=== PATIENT | male | born 1945 | race Asian ===

== ENCOUNTER 2024-01-12 07:05 | Day surgery (SDC) | payer OTHER, SELFPAY ==
[2024-01-12] VITALS (16 sets, daily range): BP systolic 148–173; BP diastolic 80–103; BMI 28.3
[2024-01-12] MEDS: LOW STRENGTH ASPIRIN 324 MG PO (08:10)
[2024-01-12] MEDS: NSS 210 ML IV (08:12)
[2024-01-12 08:15] LABS: Glucose - Point of Care 115 mg/dl (70-99)
--- NOTE | 2024-01-12 10:27 | ITS.CL.CATH ---
[employer]ist - Catheterization
Cardiac Catheterization
Procedure Report:
CARDIAC CATHETERIZATION REPORT
Date of Procedure: 01/12/2024
Referring: Sigifredo Ivey MD
Indication: Exertional angina of recent onset
�
HEMODYNAMIC DATA
AO: 175/89
LV: 175/20
�
LEFT VENTRICULOGRAPHY: Normal left ventricular wall motion with EF 64%
�
CORONARY ANGIOGRAPHY
Dominance: Right
Left Main: Normal
LAD: 50% mid LAD stenosis with otherwise mild luminal irregularities in the LAD proper. The small caliber medium distribution D1 has 30% proximal stenosis.
Circumflex: The circumflex gives rise to a tiny OM1, a large OM 2 and terminates with a tiny OM 3. There is 60% circumflex stenosis at the takeoff of OM 2
RCA: Large dominant vessel with mild luminal irregularities in the RCA proper. The acute marginal supplies the distal RPDA territory and is free of disease. There is a 40% right AV groove lesion distal to the takeoff of the acute marginal branch.
The relatively small PDA supplies the proximal PDA territory. There are four medium sized right posterolateral branches with mild luminal disease.
FloWire assessment: At the conclusion the diagnostic study we evaluated the LAD and circumflex disease with FloWire. Heparin was used for anticoagulation. An EBU 3.5 guide catheter was used. A [place] pressure wire was advanced into the large OM
2. iFR measurements were 1.0, 1.0, and 1.0. These are consistent with no flow limitation whatsoever. The wire was then redirected into the distal LAD. iFR measurements were 0.96, 0.96, and 0.96. These are consistent with nonflow-limiting
disease.
�
Closure Device: None-the procedure was performed via the right radial artery. The Chava's test was normal prior to the procedure.
�
Radiation (mGy): 390
DAP (cm2.Gy): 25.6
Fluoroscopy time: 9.1 minutes
�
CONCLUSIONS
1:�Systemic hypertension
2:�Elevated LVEDP
3. Normal left ventricular function with EF 64%
4. 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
5. Continue medical therapy. We will add metoprolol XL 25 mg daily for his anginal symptoms and to assist with hypertension control.. Continue statin with goal LDL less than 70 and ideally 55
�
�
Copy to: Sigifredo Ivey MD, Lino Mason MD
�
Ady Martínez MD, FACC, [facility]
[2024-01-12] MEDS: TOPROL XL 25 MG PO (11:41)
[2024-01-12] MEDS: COZAAR 100 MG PO (11:42)
[2024-01-12] MEDS: NSS 1000 IV (11:43)
[2024-01-12 11:49] LABS: ACT-LR - POC > 397 Seconds (116-155)
== END 2024-01-12 14:50 | disposition home or self-care (01) ==
LOC: CATH 07:05
PROVIDERS: ATTENDING PHYSICIAN Internal Medicine Cardiovascular Disease; REFERRING PHYSICIAN Internal Medicine Cardiovascular Disease
DX: I25.118 Atherosclerotic heart disease of native coronary artery with other forms of angina pectoris (principal); I10 Essential (primary) hypertension; Z79.899 Other long term (current) drug therapy; Z79.82 Long term (current) use of aspirin
CPT/HCPCS: 93799 ×2; 82962; 85347; 93458; C1769; C1894; Q9967